=== PATIENT | female | born 1975 | race Caucasian/White ===

== ENCOUNTER 2018-04-16 01:57 | Emergency (ER) | payer OTHER ==
[2018-04-16] MEDS ORDERED: fentaNYL 100 MCG/2 ML INJ IVP ONE (02:59)
--- NOTE | 2018-04-16 03:01 | EDPHY ---
H & P Stated Complaint: LOAIZA,NAUSEA,R NECK PAIN,BACK PAIN/FELL KNOCKED OVER BY DOG Time Seen by Provider: 04/16/18 02:52 HPI/ROS: Chief Complaint: Neck pain, back pain status post fall HPI: 42-year-old woman was struck from behind by a running dog and fell flat on her back. She has pain in her lower back and the right side of her neck. She did not hit her head. No loss of consciousness. She is complaining of a very mild headache. No nausea or vomiting. No numbness or weakness. She has been using ice and heat. She has not been taking any medications. No fevers or chills. No chest pain or shortness of breath. No other injuries. ROS: 10 systems were reviewed and were negative except those elements noted in the HPI. PMH: Denies Social History: No smoking, no alcohol, no recreational drug use Family History: non-contributory Physical Exam: Gen: Awake, Alert, No Distress HEENT: Nose: no rhinorrhea Eyes: PERRLA, EOMI Mouth: Moist mucosa Neck: Supple, no JVD, mild right trapezius paraspinal tenderness to palpation, no midline tenderness or step-offs Chest: nontender, lungs clear to auscultation Heart: S1, S2 normal, no murmur Abd: Soft, non-tender, no guarding Back: no CVA tenderness, no midline tenderness, mild bilateral paraspinal lower lumbar tenderness with palpable spasm Ext: no edema, non-tender Skin: no rash Neuro: CN II-XII intact, Sensation grossly intact, Strength 5/5 in bilateral upper and lower extremities - Personal History LMP (Females 10-55): 1-7 Days Ago Current Tetanus Diphtheria and Acellular Pertussis (TDAP): Unsure - Medical/Surgical History Hx Asthma: No Hx Chronic Respiratory Disease: No Hx Diabetes: No Hx Cardiac Disease: No Hx Renal Disease: No Hx Cirrhosis: No Hx Alcoholism: No Hx HIV/AIDS: No Hx Splenectomy or Spleen Trauma: No Other PMH: Anxiety - Social History Smoking Status: Never smoked Constitutional: Initial Vital Signs Temperature (C) 36.6 C 04/16/18 02:15 Heart Rate 80 04/16/18 02:15 Respiratory Rate 16 04/16/18 02:15 Blood Pressure 123/74 H 04/16/18 02:15 O2 Sat (%) 97 04/16/18 02:15 O2 Delivery Mode Room Air Allergies/Adverse Reactions: No Known Allergies Allergy (Verified 04/16/18 02:15) Home Medications: Medication Instructions Recorded NK [No Known Home Meds] 08/25/14 Medical Decision Making ED Course/Re-evaluation: 42-year-old woman with muscle strain status post fall. She is completely neurologically intact. No bony tenderness. Imaging is not indicated. Will discharge with ice, Tylenol, ibuprofen, follow up as an outpatient. Departure - Departure Disposition: Home, Routine, Self-Care Clinical Impression: Cervical strain, Lumbar strain Condition: Good Instructions: Cervical Strain (ED), Low Back Strain (ED), Lower Back Exercises (ED) Additional Instructions: Take ibuprofen, 600 mg, 3 times a day. You may also take acetaminophen, 1000 mg every 6 hours. Apply ice for 15 minutes of every hour while awake. Make sure to remain active. Did do not lay in bed or sit in a chair for long periods. Avoid heavy lifting or bending at work until cleared by your physician. Please see the attached back exercise instructions. Follow up with your primary care physician in 2-3 days for further evaluation. Referrals: NONE *PRIMARY CARE P,. [Primary Care Provider] - As per Instructions
[2018-04-16 03:14] VITALS: BP 124/89
== END 2018-04-16 03:13 | disposition home or self-care (01) ==
DX: S39.012A Strain of muscle, fascia and tendon of lower back, initial encounter (principal); S16.1XXA Strain of muscle, fascia and tendon at neck level, initial encounter; F41.9 Anxiety disorder, unspecified; W54.1XXA Struck by dog, initial encounter; Y92.9 Unspecified place or not applicable; Y93.9 Activity, unspecified; Y99.9 Unspecified external cause status